=== PATIENT | male | born 1995 | race Caucasian/White ===

== ENCOUNTER 2017-05-12 07:23 | Emergency (ER) | payer OTHER ==
[2017-05-12] MEDS: ACETAMINOPHEN 500 MG TAB PO (08:54)
== END 2017-05-12 09:16 | disposition home or self-care (01) ==
LOC: FTE 09:16
DX: R50.9 Fever, unspecified (principal); R05 Cough; R09.81 Nasal congestion; R52 Pain, unspecified; I10 Essential (primary) hypertension
CPT/HCPCS: 99283; Z7502